=== PATIENT | female | born 1980 | race Caucasian/White ===

== ENCOUNTER 2021-12-21 13:36 | Emergency (ER) | payer SELFPAY ==
[~2021-12-21] VITALS: Ht 170.1 cm; Wt 88.5 kg
[~2021-12-21 13:36] MED LIST: ANAPROX DS550 MG PO; BACTRIM DS 8001 TA1 PO; BACTROBAN CREAM15 GM T; BIRTH CONTROL; LEVOTHYROXIN0.025 MG PO; METFORMIN500 MG PO; MOTRIN800 MG PO; PERCOCET 325 MG1 TA2 PO; PRENATAL1 TA4 PO; VICODIN ES 7501 TAB PO
[2021-12-21] MEDS ORDERED: SEPTDS PO (14:15)
[2021-12-21] MEDS ORDERED: METRONIDAZOLE500 M1 PO (14:15)
== END 2021-12-21 14:22 | disposition home or self-care (01) ==
LOC: ED 13:36
DX: S61.431A Puncture wound without foreign body of right hand, initial encounter (principal); L08.89 Other specified local infections of the skin and subcutaneous tissue; Z79.899 Other long term (current) drug therapy; Z88.0 Allergy status to penicillin; Z88.1 Allergy status to other antibiotic agents; W54.0XXA Bitten by dog, initial encounter; Y93.89 Activity, other specified; Y92.89 Other specified places as the place of occurrence of the external cause; Y99.9 Unspecified external cause status

== ENCOUNTER → 2022-08-13 | Outpatient (CLI) | payer OTHER ==
[~2022-08-13] MED LIST changes: +METRONIDAZOLE500 M1 PO; +SEPTDS PO
[2022-08-13 09:00] LABS: ALKALINE PHOSPHATASE 51 U/L (46-116); BUN 9 mg/dl (9-23); CHLORIDE 102 mmol/L (98-107); CHOLESTEROL 189 mg/dL (<200); LDL CHOLESTEROL 113 mg/dL (9-159); POTASSIUM 4.1 mmol/L (3.4-5.1); SGPT/ALT 14 U/L (10-49); THYROID STIM HORMONE (HS) 2.778 uIU/ml (0.550-4.780); TOTAL PROTEIN 7.1 gm/dL (6.0-8.0); TRIGLYCERIDES 135 mg/dl (<150)
== END | disposition home or self-care (01) ==
LOC: LAB 08:17
PROVIDERS: ATTEND Family Medicine
DX: E03.9 Hypothyroidism, unspecified (principal)

== ENCOUNTER → 2022-08-31 | Outpatient (CLI) | payer OTHER | END | disposition home or self-care (01) | LOC: MAMMO 11:04 | PROVIDERS: ATTEND Family Medicine | DX: Z12.31 Encounter for screening mammogram for malignant neoplasm of breast (principal) ==